=== PATIENT | female | born 1985 | race Caucasian/White ===

== ENCOUNTER 2025-05-24 00:50 | Emergency (ER) | payer OTHER, SELFPAY ==
[2025-05-24 00:56] VITALS: BP 126/88; PULSE 79; RESP 16; TEMP 36.7; O2SAT 99; BMI 27.4
[2025-05-24 02:18] LABS: Hematocrit 36.8 % (36-47); Hemoglobin 11.80 g/dL (11.27-16.99); Mean Corpuscular HGB Conc 32.1 g/dL (30-55); Mean Corpuscular Hemoglobin 28.9 pg (27-33); Mean Corpuscular Volume 90.2 fl (85-98); Nucleated Red Blood Cells % 0 %; Platelet Count 193 10^3/cmm (157-399); Red Blood Count 4.08 10^6/uL (3.85-5.65); White Blood Count 7.37 10^3/uL (3.29-11.43)
[2025-05-24 02:35] LABS: Alanine Aminotransferase 10 U/L (0-33); Albumin Level 4.1 g/dL (3.5-5.2); Alkaline Phosphatase 83 U/L (35-105); Anion Gap 14.0 (5-19); Aspartate Amino Transferase 13 U/L (0-32); Blood Urea Nitrogen 13 mg/dL (6-20); Calcium 9.1 mg/dL (8.5-10.5); Carbon Dioxide 26 mmol/L (22-29); Chloride 101 mmol/L (98-107); Creatinine Clr Calc Pharmacy 109.2496; Globulin 3.1 g/dL (1.3-4.6); Glucose 106 mg/dL (65-115); Lipase 42 U/L (13-60); Osmolality Calculated 285 mOsm/kg (285-295); Potassium 4.0 mmol/L (3.5-5.1); Sodium 137 mmol/L (136-145); Total Protein 7.2 g/dL (6.6-8.7)
--- NOTE | 2025-05-24 03:24 | USR_ITS ---
PROCEDURE INFORMATION: Exam: US Pelvis, Transvaginal, Non-Obstetric Exam date and time: 05/24/2025 5:05 AM Age: 39 years old Clinical indication: Pelvic pain; Prior surgery; Surgery date: 1-6 months; Surgery type: Unsure of exact dates, but said she recently had left fallopian tube removed and has known endometriosis; Additional info: Left pelvic pain TECHNIQUE: Imaging protocol: Real-time transvaginal pelvic (non-obstetric) ultrasound with image documentation. Transvaginal imaging was used for better evaluation of the endometrium, adnexa, and/or cervix. COMPARISON: No relevant prior studies available. FINDINGS: Uterus: Uterus is normal. Endometrial stripe contains tiny rounded cystic areas. It is prominent at 14 mm. Right ovary/adnexa: Normal. No mass. Normal ovarian blood flow on color Doppler. Left ovary/adnexa: Within the left ovary is a 6.5 x 5.0 cm homogeneously echogenic cyst, likely a chocolate cyst or endometrioma. There is only a thin rim of normal ovarian tissue adjacent but it does appear perfused. Normal ovarian blood flow on color Doppler. Urinary bladder: Urinary bladder is limited. Intraperitoneal space: No free fluid. US/US transvaginal [id number] IMPRESSION: 6.5 cm chocolate cyst or endometrioma involving the left ovary.
--- NOTE | 2025-05-24 03:28 | W.ED.ABDPA2 ---
Documented by User: Oscar Noel MD 05/24/25 03:29 HPI - Abdominal Pain General: Chief Complaint: Abdominal Pain Stated Complaint: abd pain low left post surg Time Seen by Provider: 05/24/25 03:20 History of Present Illness: Patient with left pelvic pain that radiates around to the left back x 4 days. Has a history of endometriosis. Recently had left fallopian tube removed because of ongoing chronic pain which she states is likely from endometriosis. States this pain is worse than normal. Denies any other symptoms besides nausea. Related Data Previous Rx's ?Medication ?Instructions ?Recorded diclofenac sodium 75 mg 75 mg PO Q12H PRN pain #20 tabs 05/24/25 tablet,delayed release hydrocodone 5 mg-acetaminophen 325 1 tab PO Q6H PRN pain #10 tabs 05/24/25 mg tablet Allergies Allergy/AdvReac Type Severity Reaction Status Date / Time No Known Allergies Allergy Verified 05/24/25 01:00 Physical Exam Neck/C-Spine: COMMON NORMALS: no JVD Resp: COMMON NORMALS: normal respiratory effort, No retractions, No use of accessory muscles, clear to auscultation bilaterally and percussion normal AUSCULTATION: clear to auscultation bilaterally PERCUSSION: percussion normal Cardio: COMMON NORMALS: no JVD, regular rate, regular rhythm, S1 normal heart sound present, S2 normal heart sound present, No gallops present (Cardio), No clicks present (Cardio), No murmurs present (Cardio), No rub (Cardio) and Peripheral pulses 2+ throughout RATE: regular rate RHYTHM: regular rhythm HEART SOUNDS: S1 normal heart sound present and S2 normal heart sound present PERIPHERAL PULSES: Peripheral pulses 2+ throughout GI: OTHER: Patient with left pelvic tenderness to palpation. Back/Pelvis: OTHER: Left lower back tenderness Course Vital Signs: Vital signs: Vital Signs Temperature 98.1 F 05/24/25 00:56 Pulse Rate 72 05/24/25 07:17 Respiratory Rate 14 05/24/25 06:00 Blood Pressure 121/72 05/24/25 07:17 Pulse Oximetry 99 05/24/25 07:17 Oxygen Delivery Me thod Room Air 05/24/25 06:00 MDM - Abdominal Pain Lab Data 05/24/25 02:11 05/24/25 02:11 Labs/Radiology: Radiology Impressions Transvaginal US 05/24/25 03:24 IMPRESSION: 6.5 cm chocolate cyst or endometrioma involving the left ovary. Laboratory Results WBC 7.37 10^3/uL (3.29-11.43) 05/24/25 02:11 RBC 4.08 10^6/uL (3.85-5.65) 05/24/25 02:11 Hgb 11.80 g/dL (11.27-16.99) 05/24/25 02:11 Hct 36.8 % (36-47) 05/24/25 02:11 MCV 90.2 fl (85-98) 05/24/25 02:11 MCH 28.9 pg (27-33) 05/24/25 02:11 MCHC 32.1 g/dL (30-55) 05/24/25 02:11 RDW 12.9 % (12.1-15.1) 05/24/25 02:11 Plt Count 193 10^3/cmm (157-399) 05/24/25 02:11 MPV 11.0 fL (7.4-10.4) H 05/24/25 02:11 Neut % (Auto) 74.7 % 05/24/25 02:11 Lymph % (Auto) 17.1 % 05/24/25 02:11 [facility] % (Auto) 6.4 % 05/24/25 02:11 Eos % (Auto) 1.1 % 05/24/25 02:11 Baso % (Auto) 0.4 % 05/24/25 02:11 Neut # (Auto) 5.51 10^3/uL (1.8-7.7) 05/24/25 02:11 Lymph # (Auto) 1.3 10^3/uL (0.8-4.8) 05/24/25 02:11 [facility] # (Auto) 0.5 10^3/uL (0.2-0.9) 05/24/25 02:11 Eos # (Auto) 0.1 10^3/uL (0.0-0.8) 05/24/25 02:11 Baso # (Auto) 0.0 10^3/uL (0.0-0.1) 05/24/25 02:11 Nucleated RBC % (auto) 0 % 05/24/25 02:11 Nucleated RBCs # 0.0 /100WBC 05/24/25 02:11 Sodium 137 mmol/L (136-145) 05/24/25 02:11 Potassium 4.0 mmol/L (3.5-5.1) 05/24/25 02:11 Chloride 101 mmol/L (98-107) 05/24/25 02:11 Carbon Dioxide 26 mmol/L (22-29) 05/24/25 02:11 Anion Gap 14.0 (5-19) 05/24/25 02:11 BUN 13 mg/dL (6-20) 05/24/25 02:11 Creatinine 0.7 mg/dL (0.5-0.9) 05/24/25 02:11 GFR Calculation 93.2 mL/min (90-130) 05/24/25 02:11 Glucose 106 mg/dL (65-115) 05/24/25 02:11 Calculated Osmolality 285 mOsm/kg (285-295) 05/24/25 02:11 Calcium 9.1 mg/dL (8.5-10.5) 05/24/25 02:11 Total Bilirubin 0.3 mg/dL (0.15-1.2) 05/24/25 02:11 AST 13 U/L (0-32) 05/24/25 02:11 ALT 10 U/L (0-33) 05/24/25 02:11 Alkaline Phosphatase 83 U/L (35-105) 05/24/25 02:11 Total Protein 7.2 g/dL (6.6-8.7) 05/24/25 02:11 Albumin 4.1 g/dL (3.5-5.2) 05/24/25 02:11 Globulin 3.1 g/dL (1.3-4.6) 05/24/25 02:11 Lipase 42 U/L (13-60) 05/24/25 02:11 Urine Color Yellow (Yellow) 05/24/25 03:30 Urine Appearance Clear (CLEAR) 05/24/25 03:30 Urine pH 7.5 (5-7) 05/24/25 03:30 Ur Specific Christine 1.012 (1.005-1.030) 05/24/25 03:30 Urine Protein Negative (Negative) 05/24/25 03:30 Urine Glucose (UA) Negative (Normal) 05/24/25 03:30 Urine Ketones Negative (Negative) 05/24/25 03:30 Urine Blood Negative (Negative) 05/24/25 03:30 Urine Nitrate Negative (Negative) 05/24/25 03:30 Urine Bilirubin Negative (Negative) 05/24/25 03:30 Urine Urobilinogen 0.2 mg/dL (Negative) 05/24/25 03:30 Ur Leukocyte Esterase Negative (Negative) 05/24/25 03:30 Urine RBC 0-2 /hpf (0-2) 05/24/25 03:30 Urine WBC 0-5 /hpf (0-5) 05/24/25 03:30 Ur Squamous Epith Cells 0-5 /hpf (0-5) 05/24/25 03:30 Amorphous Sediment Not Reportable 05/24/25 03:30 Urine Bacteria None seen /hpf (NONE) 05/24/25 03:30 Hyaline Casts 0-4 /lpf H 05/24/25 03:30 Discharge Plan Discharge Patient Disposition: Home Clinical Impression: Endometriosis Condition: Stable Prescriptions: New hydrocodone-acetaminophen 5-325 mg tablet 1 tab PO Q6H PRN (Reason: pain) Qty: 10 0RF diclofenac sodium 75 mg tablet,delayed release (DR/EC) 75 mg PO Q12H PRN (Reason: pain) Qty: 20 0RF Discharge Orders: Discharge ED (Routine); Ordered 05/24/25 Ordered By: Keith Thomas Discharge Diet: Usual diet Discharge Activity: Increase activity as tolerated Patient Instructions: Endometriosis (ED), Opioid Safety, Pain Management, Patient Portal & Valarie Instructions Activity Restrictions/Additional Instructions: Thank you for choosing [facility] for your healthcare needs today. It is very important that you follow up as instructed or that you return to the Emergency Department should you have concerns or if your condition changes or worsens in any way. Print Language: Hebrew Sign Out Sign Out Data: Patient Sign Out occurred on 05/24/25 at 06:19. Patient's care was discussed, and care was transferred from Oscar Noel MD to Keith Thomas DO. Coding Level of Care Code ED Nuclear Reactor Technician for Chg Fwd Documented by User: Keith Thomas DO 05/24/25 09:01 HPI - Abdominal Pain General: Chief Complaint: Abdominal Pain Stated Complaint: abd pain low left post surg Time Seen by Provider: 05/24/25 03:20 Related Data Previous Rx's ?Medication ?Instructions ?Recorded diclofenac sodium 75 mg 75 mg PO Q12H PRN pain #20 tabs 05/24/25 tablet,delayed release hydrocodone 5 mg-acetaminophen 325 1 tab PO Q6H PRN pain #10 tabs 05/24/25 mg tablet Allergies Allergy/AdvReac Type Severity Reaction Status Date / Time No Known Allergies Allergy Verified 05/24/25 01:00 Course Vital Signs: Vital signs: Vital Signs Temperature 98.1 F 05/24/25 00:56 Pulse Rate 72 05/24/25 07:17 Respiratory Rate 14 05/24/25 06:00 Blood Pressure 121/72 05/24/25 07:17 Pulse Oximetry 99 05/24/25 07:17 Oxygen Delivery Me thod Room Air 05/24/25 06:00 MDM - Abdominal Pain Medical Decision Making Care assumed at change of shift pelvic ultrasound shows endometriosis within fairly significant area on the left ovary. Will discharge home. Diclofenac as well as hydrocodone to use as needed patient is traveling in the room. Follow-up with her primary physician or [facility] as soon as she is able to return to Lab Data I reviewed the patient's lab results. 05/24/25 02:11 05/24/25 02:11 Labs/Radiology: Radiology Impressions Transvaginal US 05/24/25 03:24 IMPRESSION: 6.5 cm chocolate cyst or endometrioma involving the left ovary. Laboratory Results WBC 7.37 10^3/uL (3.29-11.43) 05/24/25 02:11 RBC 4.08 10^6/uL (3.85-5.65) 05/24/25 02:11 Hgb 11.80 g/dL (11.27-16.99) 05/24/25 02:11 Hct 36.8 % (36-47) 05/24/25 02:11 MCV 90.2 fl (85-98) 05/24/25 02:11 MCH 28.9 pg (27-33) 05/24/25 02:11 MCHC 32.1 g/dL (30-55) 05/24/25 02:11 RDW 12.9 % (12.1-15.1) 05/24/25 02:11 Plt Count 193 10^3/cmm (157-399) 05/24/25 02:11 MPV 11.0 fL (7.4-10.4) H 05/24/25 02:11 Neut % (Auto) 74.7 % 05/24/25 02:11 Lymph % (Auto) 17.1 % 05/24/25 02:11 [facility] % (Auto) 6.4 % 05/24/25 02:11 Eos % (Auto) 1.1 % 05/24/25 02:11 Baso % (Auto) 0.4 % 05/24/25 02:11 Neut # (Auto) 5.51 10^3/uL (1.8-7.7) 05/24/25 02:11 Lymph # (Auto) 1.3 10^3/uL (0.8-4.8) 05/24/25 02:11 [facility] # (Auto) 0.5 10^3/uL (0.2-0.9) 05/24/25 02:11 Eos # (Auto) 0.1 10^3/uL (0.0-0.8) 05/24/25 02:11 Baso # (Auto) 0.0 10^3/uL (0.0-0.1) 05/24/25 02:11 Nucleated RBC % (auto) 0 % 05/24/25 02:11 Nucleated RBCs # 0.0 /100WBC 05/24/25 02:11 Sodium 137 mmol/L (136-145) 05/24/25 02:11 Potassium 4.0 mmol/L (3.5-5.1) 05/24/25 02:11 Chloride 101 mmol/L (98-107) 05/24/25 02:11 Carbon Dioxide 26 mmol/L (22-29) 05/24/25 02:11 Anion Gap 14.0 (5-19) 05/24/25 02:11 BUN 13 mg/dL (6-20) 05/24/25 02:11 Creatinine 0.7 mg/dL (0.5-0.9) 05/24/25 02:11 GFR Calculation 93.2 mL/min (90-130) 05/24/25 02:11 Glucose 106 mg/dL (65-115) 05/24/25 02:11 Calculated Osmolality 285 mOsm/kg (285-295) 05/24/25 02:11 Calcium 9.1 mg/dL (8.5-10.5) 05/24/25 02:11 Total Bilirubin 0.3 mg/dL (0.15-1.2) 05/24/25 02:11 AST 13 U/L (0-32) 05/24/25 02:11 ALT 10 U/L (0-33) 05/24/25 02:11 Alkaline Phosphatase 83 U/L (35-105) 05/24/25 02:11 Total Protein 7.2 g/dL (6.6-8.7) 05/24/25 02:11 Albumin 4.1 g/dL (3.5-5.2) 05/24/25 02:11 Globulin 3.1 g/dL (1.3-4.6) 05/24/25 02:11 Lipase 42 U/L (13-60) 05/24/25 02:11 Urine Color Yellow (Yellow) 05/24/25 03:30 Urine Appearance Clear (CLEAR) 05/24/25 03:30 Urine pH 7.5 (5-7) 05/24/25 03:30 Ur Specific Christine 1.012 (1.005-1.030) 05/24/25 03:30 Urine Protein Negative (Negative) 05/24/25 03:30 Urine Glucose (UA) Negative (Normal) 05/24/25 03:30 Urine Ketones Negative (Negative) 05/24/25 03:30 Urine Blood Negative (Negative) 05/24/25 03:30 Urine Nitrate Negative (Negative) 05/24/25 03:30 Urine Bilirubin Negative (Negative) 05/24/25 03:30 Urine Urobilinogen 0.2 mg/dL (Negative) 05/24/25 03:30 Ur Leukocyte Esterase Negative (Negative) 05/24/25 03:30 Urine RBC 0-2 /hpf (0-2) 05/24/25 03:30 Urine WBC 0-5 /hpf (0-5) 05/24/25 03:30 Ur Squamous Epith Cells 0-5 /hpf (0-5) 05/24/25 03:30 Amorphous Sediment Not Reportable 05/24/25 03:30 Urine Bacteria None seen /hpf (NONE) 05/24/25 03:30 Hyaline Casts 0-4 /lpf H 05/24/25 03:30 All radiology interpretation(s) finalized by discharge Discharge Plan Discharge Patient Disposition: Home Clinical Impression: Endometriosis Condition: Stable Prescriptions: New hydrocodone-acetaminophen 5-325 mg tablet 1 tab PO Q6H PRN (Reason: pain) Qty: 10 0RF diclofenac sodium 75 mg tablet,delayed release (DR/EC) 75 mg PO Q12H PRN (Reason: pain) Qty: 20 0RF Discharge Orders: Discharge ED (Routine); Ordered 05/24/25 Ordered By: Keith Thomas Discharge Diet: Usual diet Discharge Activity: Increase activity as tolerated Patient Instructions: Endometriosis (ED), Opioid Safety, Pain Management, Patient Portal & Valarie Instructions Activity Restrictions/Additional Instructions: Thank you for choosing [facility] for your healthcare needs today. It is very important that you follow up as instructed or that you return to the Emergency Department should you have concerns or if your condition changes or worsens in any way. Print Language: Hebrew Sign Out Sign Out Data: Patient Sign Out occurred on 05/24/25 at 06:19. Patient's care was discussed, and care was transferred from Oscar Noel MD to Keith Thomas DO. Coding Level of Care Code ED Nuclear Reactor Technician for Licha Webber
[2025-05-24 03:43] LABS: Glucose Urine UA Negative (Normal); Nitrate Urine Negative (Negative); Specific Gravity, Urine 1.012 (1.005-1.030)
[2025-05-24 03:48] LABS: Add Urine Microscopic? YES
[2025-05-24] MEDS: ondansetron 2 mg/ML SDV 2 mL 4 MG IVP (03:50)
[2025-05-24 03:52] VITALS: RESP 17
[2025-05-24] MEDS: morphine 4 mg/mL SDV 1 mL IVP (03:52)
[2025-05-24 04:00] VITALS: BP 113/67; PULSE 82; RESP 15; O2SAT 96
[2025-05-24 05:00] VITALS: BP 106/65; PULSE 75; RESP 15; O2SAT 98
[2025-05-24 06:00] VITALS: BP 119/71; PULSE 68; RESP 14; O2SAT 98
[2025-05-24 07:17] VITALS: BP 121/72; PULSE 72; O2SAT 99
== END 2025-05-24 07:44 | disposition home or self-care (01) ==
PROVIDERS: Emergency Medicine; Emergency Provider Family Medicine
DX: N80.9 Endometriosis, unspecified (principal)
CPT/HCPCS: 36415; 76830; 80053; 81001; 83690; 85025; 96374; 96375; 99284; J1885; J2270; J2405